=== PATIENT | male | born 1985 | race African-American/Black ===

== ENCOUNTER 2016-06-12 11:57 | Emergency (ER) | payer MEDICAID ==
[~2016-06-12] VITALS: Ht 180.3 cm; Wt 71.7 kg
[2016-06-12 12:45] VITALS: BP 122/72
--- NOTE | 2016-06-12 13:51 | NUR ---
Patient ambulated to bed 8 at this time.
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
[2016-06-12] MEDS ORDERED: IBUPROFEN 600 MG TAB PO ONE (14:35)
[2016-06-12] MEDS ORDERED: oxyCODONE/APAP 5/325 MG 1 TAB TAB PO ONE (14:35)
[2016-06-12] MEDS ORDERED: LIDOCAINE 1% ED 50 ML ONE (14:38)
--- NOTE | 2016-06-12 17:02 | NUR ---
DR SOTO AT BEDSIDE SUTURING AAO PT
[2016-06-12] MEDS ORDERED: BACITRACIN OINT 500 UNITS/GM PKT TP ONE (17:54)
[2016-06-12 17:57] VITALS: BP 119/68
== END 2016-06-12 17:57 | disposition home or self-care (01) ==
LOC: MED 11:57
DX: S01.112A Laceration without foreign body of left eyelid and periocular area, initial encounter (principal); W22.8XXA Striking against or struck by other objects, initial encounter; Y93.89 Activity, other specified; Y92.89 Other specified places as the place of occurrence of the external cause; Y99.8 Other external cause status
CPT/HCPCS: 12001; 90471; 90715; 99283; J2001

== ENCOUNTER 2016-06-19 10:27 | Emergency (ER) | payer SELFPAY ==
[~2016-06-19] VITALS: Ht 185.4 cm; Wt 70.8 kg
[2016-06-19 10:46] VITALS: BP 102/78
--- NOTE | 2016-06-19 10:50 | NUR ---
PT AMBULATED TO BED 8.
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
--- NOTE | 2016-06-19 11:02 | NUR ---
ER MD DR. PRATT EVALUATING PT AT BEDSIDE.
[2016-06-19 11:19] VITALS: BP 113/72
--- NOTE | 2016-06-19 11:19 | NUR ---
Patient discharged with v/s stable. Written and verbal after care instructions given and explained. Patient alert, oriented and verbalized understanding of instructions. Ambulatory with steady gait. All questions addressed prior to discharge. ID band removed. Patient advised to follow up with PMD. Rx of MOTRIN 600MG & NORCO 5MG-325MG TAB given. Patient educated on indication of medication including possible reaction and side effects. Opportunity to ask questions provided and answered.
== END 2016-06-19 11:19 | disposition home or self-care (01) ==
LOC: MED 10:27
DX: S01.81XD Laceration without foreign body of other part of head, subsequent encounter (principal); F07.81 Postconcussional syndrome; W22.03XD Walked into furniture, subsequent encounter; Y92.89 Other specified places as the place of occurrence of the external cause; Y99.8 Other external cause status